=== PATIENT | female | born 1985 | race Caucasian/White ===

== ENCOUNTER 2016-05-14 23:17 | Emergency (ER) | payer MEDICAID, OTHER ==
[~2016-05-14] VITALS: Ht 157.5 cm; Wt 66.0 kg
[2016-05-15 00:16] VITALS: Ht 157.5 cm; Wt 66.0 kg
[2016-05-15] MEDS ORDERED: AZIT250T94 PO (00:38)
[2016-05-15] MEDS ORDERED: IBUP-1542 PO (00:38)
[2016-05-15] MEDS ORDERED: BENZ100C70 PO (00:39)
[2016-05-15] MEDS ORDERED: LORA10TA3 PO (00:39)
--- NOTE | 2016-05-15 00:46 | ERD ---
ER Documentation Chief Complaint Date/Time DATE: 05/15/16 TIME: 00:43 Chief Complaint Dx with bronchitis today but couldnt get scripts filled HPI Patient is a 30-year-old female who presents to the ED with cough, runny nose and sore throat for 2 weeks. She states that she got a prescription from her provider today however she did not get it filled because she was busy with work. She denies fever or chills. She denies abdominal pain, nausea, vomiting or diarrhea. Denies constipation. Denies headache, dizziness, neck pain or stiffness. She states that she has pain with she swallows and has had a productive cough. She has taken [id number] medications, unsure of name for her symptoms with minimal relief. She denies leg pain or swelling. Denies chest pain, shortness of breath or difficulty breathing. States that her daughter has had similar symptoms at home. No other complaints. ROS All systems reviewed and are negative except as per history of present illness. Medications Home Meds Active Scripts Benzonatate* (Tessalon Perle*) 100 Mg Capsule, 100 MG PO Q8H Y for COUGH for 10 Days, CAP Prov:ISABELATARIANKALEEAZ PA-C 05/15/16 Loratadine* (Loratadine*) 10 Mg Tablet, 10 MG PO DAILY, #30 TAB Prov:ISABELATARIANMARE PA-C 05/15/16 Azithromycin* (Zithromax*) 250 Mg Tablet, 250 MG PO .ZPACK DIRECTED, #6 TAB TAKE 500 MG (2 TABS) THE FIRST DAY THEN 250 MG (1 TAB) DAYS 2-5 Prov:SHOINNATARIANKALEEAZ PA-C 05/15/16 Ibuprofen* (Motrin*) 600 Mg Tab, 600 MG PO Q6, #30 TAB Prov:SHOOSHTARIANKALEEAZ PA-C 05/15/16 Allergies Allergies: Coded Allergies: No Known Allergy (Unverified , 11/16/11) PMhx/Soc Medical and Surgical Hx: pt denies Medical Hx, pt denies Surgical Hx History of Surgery: No Anesthesia Reaction: No Hx Neurological Disorder: No Hx Respiratory Disorders: No Hx Cardiac Disorders: No Hx Psychiatric Problems: No Hx Miscellaneous Medical Probl: No Hx Alcohol Use: No Hx Substance Use: No Hx Tobacco Use: No Sm[facility] Status[facility] Family History: No coronary disease, No diabetes, No other Physical Exam Vitals Vital Signs Date Time Temp Pulse Resp B/P Pulse Ox O2 Delivery O2 Flow Rate FiO2 05/15/16 00:16 97.6 104 20 121/80 99 Physical Exam GENERAL: Well-developed, well-nourished female. Appears in no acute distress. HEAD: Normocephalic, atraumatic. EYES: Pupils are equally reactive bilaterally. EOMs grossly intact. No conjunctival erythema. ENT: Moist mucous membranes. No uvula deviation. No kissing tonsils. No exudates. Bilateral TMs are not erythematous, not bulging with no mastoid tenderness NECK: Supple. No lymphadenopathy or thyromegaly. No meningismus. negative kernig. negative brudinski. LUNG: Clear to auscultation bilaterally. No rhonchi, wheezing, rales or coarse breath sounds. No retractions or nasal flaring. HEART: Regular rate and rhythm. No murmurs, rubs or gallops. Extremities: Equal pulses bilaterally. No peripheral clubbing, cyanosis or edema. No unilateral leg swelling. NEUROLOGIC: Alert and oriented. Moving all four extremities. 5/5 strength in all extremities. Normal speech. Steady gait. SKIN: Normal color. Warm and dry. No rashes or lesions. Capillary refill < 2 seconds Procedures/MDM ER COURSE: I kept the patient and/or family informed of laboratory and diagnostic imaging results throughout the emergency room course. MEDICAL DECISION MAKING: This is a 30-year-old female who presents with cough, sore throat and runny nose 2 weeks. Vital signs were reviewed. Patient is afebrile. Patient is not hypoxic. Patient is not toxic or ill-appearing. Temperature 97.6 with an O2 sat of 99 in the ED. She has a pulse of 104, likely stress reaction. Patient is coughing in the examination room. Patient likely has URI of viral versus bacterial etiology. I do not think a chest x-ray is warranted at this time as patient does not show signs of respiratory distress and she has normal oxygen saturation with a normal lung examination. Low suspicion for pneumonia, PE, pneumothorax, ACS, epiglottitis, obstruction, TB, pertussis, meningitis, sepsis. Low suspicion for peritonsillar abscess, strep pharyngitis, mononucleosis, dental abscess DISCHARGE: At this time, patient is stable for discharge and outpatient management with no new complaints during the ER course. Patient was sent home with Tessalon Perles , loratadine, azithromycin, ibuprofen. Patient will be discharged home with instructions to recheck for new or worsening symptoms such as fever, nausea, weakness, LOC and to follow up with primary care in the next 1-2 days. Patient was advised to return to the ER for any new or worsening symptoms. Plan was discussed and patient and/or family understands and agrees. Home instructions were given. Departure Diagnosis: Primary Impression: URI, acute Condition: Stable Patient Instructions: Uri, Viral, No Abx (Adult) Additional Instructions: Call your primary care doctor TOMORROW for an appointment during the next 1-2 days.See the doctor sooner or return here if your condition worsens before your appointment time. MARE VAUGHN PA-C May 15, 2016 00:46
== END 2016-05-15 01:43 | disposition home or self-care (01) ==
LOC: FTE 23:17
DX: J06.9 Acute upper respiratory infection, unspecified (principal)
CPT/HCPCS: 99284

== ENCOUNTER 2016-09-17 10:19 | Emergency (ER) | payer OTHER ==
[~2016-09-17] VITALS: Ht 154.9 cm; Wt 66.0 kg
[~2016-09-17 10:19] MED LIST: AZIT250T94 PO; BENZ100C70 PO; IBUP-1542 PO; LORA10TA3 PO
[2016-09-17 10:23] VITALS: Ht 154.9 cm; Wt 66.0 kg
[2016-09-17] MEDS ORDERED: IBUP-1542 PO (11:05)
--- NOTE | 2016-09-17 11:09 | RADRPT ---
PROCEDURE: CT Head without. CLINICAL INDICATION: Headache. TECHNIQUE: The study was performed utilizing a multi-slice, multidetector CT scanner. Direct spira l 1 mm axial sections were obtained through the head without the use of intravenous contrast materia l. 1 or more of the following dose reduction techniques were utilized: Automated exposure control, adjustment of the mA and/or kV according to patient's size, iterative reconstruction technique. Co brett and sagittal reformations were obtained. The images were reviewed on a PACS workstation. RADIATION DOSE: CTDIvol: 44.2 mGyDLP: 630.2 mGy-cm COMPARISON: No prior studies are available for comparison. FINDINGS: There is no intracranial hemorrhage, extra-axial fluid collection, mass lesion, midline shift or hyd rocephalus. The ventricles, sulci and cisterns are within normal limits. The white matter is unrem arkable. The mancilla-white matter differentiation is preserved. The basal cisterns are patent. The m idline structures are intact. The orbits, calvarium and extracranial soft tissues are normal in bryanna earance. The visualized paranasal sinuses, mastoid air cells and middle ear cavities are normally ae rated. IMPRESSION: 1. No acute intracranial abnormality. No intracranial hemorrhage, extra-axial fluid collection, ma ss lesion or hydrocephalous. RPTAT: DD .Joel Garzon MD, MD Date Time Electronically viewed and signed by .Joel Garzon MD, on 09/17/2016 11:09 .S/
--- NOTE | 2016-09-17 11:14 | ERD ---
ER Documentation Chief Complaint Date/Time DATE: 09/17/16 TIME: 11:05 Chief Complaint dizziness and headache x 1 month worse x3 days, seen by pmd yesterday HPI Patient is a 30-year-old female presents to the emergency department for concerns of a headache and dizziness 1 month. She states 3 days ago she woke up feeling dizzy. She states that the room was spinning. Patient states that her dizziness is worse with positional changes. Patient states that her symptoms resolved after about 3-4 hours. Patient currently does not have any dizziness. Patient also states she has had a headache now for the last month. Patient describes the pain to be in her right temporal region. Patient denies any radiation of the pain. Patient denies any fevers, chills, neck pain, neck stiffness, blurry vision, phonophobia, photophobia or loss of consciousness. She denies any chest pain, shortness of breath, left upper extremity pain, abdominal pain. Patient states that she saw her primary care physician yesterday who did conduct blood work, results pending per patient. Patient was offered "two injections" however she declined them due to financial reasons. Patient presents to the ED because her primary physician told her to come into the ER if her symptoms get worse. ROS All systems reviewed and are negative except as per history of present illness. Medications Home Meds Active Scripts Meclizine Hcl* (Antivert*) 12.5 Mg Tab, 12.5 MG PO Q6H Y for DIZZINESS, #10 TAB Prov:ARIANNE GARRIDO-C 09/17/16 Ibuprofen* (Motrin*) 600 Mg Tab, 600 MG PO Q6, #20 TAB Prov:ARIANNE GARRIDO-C 09/17/16 Benzonatate* (Tessalon Perle*) 100 Mg Capsule, 100 MG PO Q8H Y for COUGH for 10 Days, CAP Prov:MARE VAUGHN-Casey 05/15/16 Loratadine* (Loratadine*) 10 Mg Tablet, 10 MG PO DAILY, #30 TAB Prov:MARE VAUGHN PA-C 05/15/16 Azithromycin* (Zithromax*) 250 Mg Tablet, 250 MG PO .SAJI DIRECTED, #6 TAB TAKE 500 MG (2 TABS) THE FIRST DAY THEN 250 MG (1 TAB) DAYS 2-5 Prov:RODERICKMARE MORALES 05/15/16 Ibuprofen* (Motrin*) 600 Mg Tab, 600 MG PO Q6, #30 TAB Prov:RODERICKMARE MORALES 05/15/16 Allergies Allergies: Coded Allergies: No Known Allergy (Unverified , 11/16/11) PMhx/Soc Medical and Surgical Hx: pt denies Medical Hx, pt denies Surgical Hx History of Surgery: No Anesthesia Reaction: No Hx Neurological Disorder: No Hx Respiratory Disorders: No Hx Cardiac Disorders: No Hx Psychiatric Problems: No Hx Miscellaneous Medical Probl: No Hx Alcohol Use: No Hx Substance Use: No Hx Tobacco Use: No Smoking Status: Never smoker FmHx Family History: diabetes Physical Exam Vitals Vital Signs Date Time Temp Pulse Resp B/P Pulse Ox O2 Delivery O2 Flow Rate FiO2 09/17/16 10:23 97.9 80 18 148/75 99 Physical Exam GENERAL: Well-developed, well-nourished male. Appears in no acute distress. Speaking in full sentences. HEAD: Normocephalic, atraumatic. EYES: Pupils are equally reactive bilaterally. EOMs grossly intact. No conjunctival erythema. ENT: Auditory canals clear bilaterally. TM appears normal bilaterally, non- erythematous, non- bulging. Moist mucous membranes. No uvula deviation. No kissing tonsils. NECK: Supple. No meningismus. Normal range of motion of the neck. LUNG: Clear to auscultation bilaterally. No rhonchi, wheezing, rales or coarse breath sounds. HEART: Regular rate and rhythm. No murmurs, rubs or gallops BACK: No midline tenderness. EXTREMITIES: Equal pulses bilaterally. No peripheral clubbing, cyanosis or edema. No unilateral leg swelling. NEUROLOGIC: Alert and oriented x3, cooperative. Mood and affect appropriate to situation. Cranial nerves II through XII are grossly intact. Normal speech. Motor exam: 5/5 strength in upper and lower extremities. Sensory exam: Sensation intact to light touch on all four extremities. Cerebellar function exam: No dysmetria on pkeymv-zz-oybd test. Steady gait. No pronator drift. SKIN: Normal color. Warm and dry. No rashes or lesions. Results 24 hrs Current Medications Medications (Trade) Dose Ordered Sig/Kwame Route PRN Reason Start Time Stop Time Status Last Admin Dose Admin Ketorolac Tromethamine (Toradol) 30 mg ONCE STAT IM 09/17/16 11:36 09/17/16 11:37 DC 09/17/16 11:41 Procedures/MDM ED COURSE: The patient was stable throughout ED course. I kept the patient and/or family informed of laboratory and diagnostic imaging results throughout the ED course. DIAGNOSTIC IMAGING: Read by radiologist. DIAGNOSTIC IMAGING REPORT Patient: IDRIS LÓPEZ : 1985 Age: 30 Sex: F MR #: [id number] DOS: 09/17/16 1038 Ordering MD: ARIANNE GARRIDO PA-C Location: [facility] Room/Bed: PROCEDURE: CT Head without. CLINICAL INDICATION: Headache. TECHNIQUE: The study was performed utilizing a multi-slice, multidetector CT scanner. Direct spiral 1 mm axial sections were obtained through the head without the use of intravenous contrast material. 1 or more of the following dose reduction techniques were utilized: Automated exposure control, adjustment of the mA and/or kV according to patient's size, iterative reconstruction technique. Coronal and sagittal reformations were obtained. The images were reviewed on a PACS workstation. RADIATION DOSE: CTDIvol: 44.2 mGy DLP: 630.2 mGy-cm COMPARISON: No prior studies are available for comparison. FINDINGS: There is no intracranial hemorrhage, extra-axial fluid collection, mass lesion, midline shift or hydrocephalus. The ventricles, sulci and cisterns are within normal limits. The white matter is unremarkable. The mancilla-white matter differentiation is preserved. The basal cisterns are patent. The midline structures are intact. The orbits, calvarium and extracranial soft tissues are normal in appearance. The visualized paranasal sinuses, mastoid air cells and middle ear cavities are normally aerated. IMPRESSION: 1. No acute intracranial abnormality. No intracranial hemorrhage, extra-axial fluid collection, mass lesion or hydrocephalous. RPTAT: DD .Joel Garzon MD, Date Time Electronically viewed and signed by .Joel Garzon MD, on 09/17/2016 11: 09 .S/ CC: ARIANNE GARRIDO PA-C PROCEDURES: None. MEDICATIONS GIVEN: Toradol IM Patient tolerated medication well with no adverse reactions. Patient reported improvement in pain. MEDICAL DECISION MAKING: Patient is a 80-year-old female who presents with a headache 1 month and dizziness. Patient states she had dizziness 3 days ago however her symptoms have resolved at this time. Patient stated that her dizziness occurred in the morning upon waking up and was worse with positional changes. Patient states that symptoms resolved within 3 hours. Vital signs were reviewed. Patient was afebrile. Patient is not hypoxic. Patient denied any fevers, neck stiffness, jaw claudication, visual changes or LOC. Full neurological exam was normal. Patient was offered meclizine here in the ED however she declined given that dizziness resolved [address] of the brain was unremarkable. Patient given Toradol IM after negative CT brain obtained. Given these findings, the patient s presentation is most consistent with headache. I have a much lower clinical concern for intracranial hemorrhage, meningitis, encephalitis, CO poisoning, , intracranial mass, glaucoma, preeclampsia, sinusitis, cluster headache. Patient's dizziness is most consistent with BPPV. Low suspicion for intracranial hemorrhage, cerebral infarct, intracranial mass, multiple sclerosis , acute otitis media. PRESCRIPTIONS: Meclizine, Ibuprofen DISCHARGE: At this time, patient is stable for discharge and outpatient management. Patient provided with a copy of all imaging studies obtained today. I have encouraged the patient to hydrate well. I have instructed the patient to follow- up with his/her primary care physician in 1-2 days. If symptoms persist, patient may need to see a specialist for further examinations and testing. I have instructed the patient to promptly return to the ER at any time for any new or worsening symptoms including increased increased pain, fever, nausea, vomiting, numbness, neck stiffness, visual changes, weakness or LOC. The patient and/or family expressed understanding of and agreement with this plan. All questions were answered. Home care instructions were provided. Patients blood pressure was elevated (>120/80) but appears stable without evidence of hypertensive emergency, hypertensive urgency or end-organ failure. I had discussion with the patient about the risks of hypertension. I have advised the patient to follow up with his/her primary care physician for outpatient monitoring and treatment for hypertension in 2-3 days. I have instructed the patient to return to the ER for any new or worsening symptoms including chest pain, shortness of breath, headache, blurred vision, confusion, nausea, vomiting or LOC. Departure Diagnosis: Primary Impression: Headache Headache type: unspecified Headache chronicity pattern: unspecified pattern Intractability: not intractable Qualified Code: R51 - Nonintractable headache, unspecified chronicity pattern, unspecified headache type Additional Impression: BPPV (benign paroxysmal positional vertigo) Laterality: unspecified laterality Qualified Code: H81.10 - BPPV (benign paroxysmal positional vertigo), unspecified laterality Condition: Stable Patient Instructions: Self-Care for Headaches Referrals: [facility] YOU HAVE RECEIVED A MEDICAL SCREENING EXAM AND THE RESULTS INDICATE THAT YOU DO NOT HAVE A CONDITION THAT REQUIRES URGENT TREATMENT IN THE EMERGENCY DEPARTMENT. FURTHER EVALUATION AND TREATMENT OF YOUR CONDITION CAN WAIT UNTIL YOU ARE SEEN IN YOUR DOCTORS OFFICE WITHIN THE NEXT 1-2 DAYS. IT IS YOUR RESPONSIBILITY TO MAKE AN APPOINTMENT FOR FOLOW-UP CARE. IF YOU HAVE A PRIMARY DOCTOR --you should call your primary doctor and schedule an appointment IF YOU DO NOT HAVE A PRIMARY DOCTOR YOU CAN CALL OUR PHYSICIAN REFERRAL HOTLINE AT IF YOU CAN NOT AFFORD TO SEE A PHYSICIAN YOU CAN CHOSE FROM THE FOLLOWING [facility] [address] [facility]. [facility] [address] [facility]. [facility] [address]. [facility] [address] [facility] [facility] [address] [facility]. [facility]. [address] [facility]. [facility] YOU HAVE RECEIVED A MEDICAL SCREENING EXAM AND THE RESULTS INDICATE THAT YOU DO NOT HAVE A CONDITION THAT REQUIRES URGENT TREATMENT IN THE EMERGENCY DEPARTMENT. FURTHER EVALUATION AND TREATMENT OF YOUR CONDITION CAN WAIT UNTIL YOU ARE SEEN IN YOUR DOCTORS OFFICE WITHIN THE NEXT 1-2 DAYS. IT IS YOUR RESPONSIBILITY TO MAKE AN APPOINTMENT FOR FOLOW-UP CARE. IF YOU HAVE A PRIMARY DOCTOR --you should call your primary doctor and schedule and appointment IF YOU DO NOT HAVE A PRIMARY DOCTOR YOU CAN CALL OUR PHYSICIAN REFERRAL HOTLINE AT . IF YOU CAN NOT AFFORD TO SEE A PHYSICIAN YOU CAN CHOSE FROM THE FOLLOWING [facility] INSTITUTIONS: [facility] [address] [place] [address] [facility] [address] [place] [address] [facility] [address] [place] [address] Additional Instructions: Call your primary care doctor TOMORROW for an appointment during the next 1-2 days.See the doctor sooner or return here if your condition worsens before your appointment time. ARIANNE GARRIDO PA-C Sep 17, 2016 11:14
[2016-09-17] MEDS ORDERED: KETOROLAC 30 MG INJ IM STA (11:36)
[2016-09-17] MEDS ORDERED: MECL12.574 PO (11:37)
== END 2016-09-17 11:54 | disposition home or self-care (01) ==
LOC: FTE 10:19
DX: R51 Headache (principal); H81.10 Benign paroxysmal vertigo, unspecified ear
CPT/HCPCS: 70450; J1885; 96372